=== PATIENT | male | born 1990 | race Two or more races ===

== ENCOUNTER 2017-04-01 16:32 | Emergency (ER) | payer MEDICAID ==
[~2017-04-01] VITALS: Ht 172.7 cm; Wt 81.6 kg
--- NOTE | 2017-04-01 16:45 | NUR ---
SELF PRESENTS TO ED C/O RIGHT SHOULDER PAIN RADIATES TO RIGHT HAND FOR 10-14 DAYS. PATIENT ALSO STATING NUMBNESS AT TIMES IN RIGHT HAND. A/OX 4. BREATHING EVEN AND UNLABORED. NO SOB. VITALS STABLE. SAFETY AND COMFORT MEASURES IN PLACE. AWAITING MD ORDERS.
[2017-04-01] MEDS ORDERED: IBUPROFEN 400 MG TABLET PO ONE (17:00)
[2017-04-01] MEDS ORDERED: IBUPROFEN 400 MG TABLET ONE (17:03)
--- NOTE | 2017-04-01 17:03 | NUR ---
TEXTED DR. BAIN FOR MRI APPROVAL.
--- NOTE | 2017-04-01 17:07 | NUR ---
PATIENT MEDICATED PER MD ORDERS.
--- NOTE | 2017-04-01 17:28 | NUR ---
CALLED [facility] FOR APPROVAL FOR MRI, HE SAID HE WOULD CALL US BACK WHEN HE GETS APPROVAL.
--- NOTE | 2017-04-01 19:05 | NUR ---
PATIENT TAKEN TO MRI VIA WHEELCHAIR.
[2017-04-01 20:52] VITALS: BP 148/78
--- NOTE | 2017-04-01 21:08 | NUR ---
Patient discharged to home in stable condition. Written and verbal after care instructions given. Patient verbalizes understanding of instruction. Prescription given.
== END 2017-04-01 21:08 | disposition home or self-care (01) ==
LOC: ER 16:35
DX: M50.23 Other cervical disc displacement, cervicothoracic region (principal); M54.12 Radiculopathy, cervical region; I10 Essential (primary) hypertension
CPT/HCPCS: 72141; 99284; A4606; Z7610